=== PATIENT | female | born 1975 | race Caucasian/White ===

== ENCOUNTER 2024-05-24 15:58 | Emergency (ER) | payer BC, MEDICAID ==
[~2024-05-24] VITALS: Ht 162.6 cm; Wt 104.5 kg
[2024-05-24 16:07] VITALS: BP 139/87; PULSE 90; RESP 19; TEMP 98.4; O2SAT 99
[2024-05-24 16:26] LABS: GLUCOMETER DEV NAME(LOC) ERT.6; GLUCOSE,POINT OF CARE 110 MG/DL (70-110)
[2024-05-24 16:30] LABS: COVID AG,FIA SOURCE NASAL SWAB
[2024-05-24 16:44] LABS: HEMATOCRIT 42.8 % (36-46); HEMOGLOBIN 14.3 g/dL (12.0-16.0); MEAN CORPUSCULAR HEMOGLOBIN 30.6 pg (26.0-34.0); MEAN CORPUSCULAR HGB CONC 33.3 G/dL (31.0-37.0); MEAN CORPUSCULAR VOLUME 92 fL (80-100); PLATELET COUNT (AUTO) 218 K/uL (150-450); RED BLOOD CELL COUNT(AUTO) 4.66 MIL/uL (4.00-5.20); RED CELL DISTRIBUTION WIDTH 14.4 % (11.5-14.5); WHITE BLOOD COUNT (AUTO) 8.7 K/uL (4.5-11.0)
[2024-05-24 16:46] LABS: APPEARANCE,URINE HAZY (CLEAR); BILIRUBIN,URINE NEGATIVE (NEGATIVE); COLOR,URINE LIGHT YELLOW (YELLOW); GLUCOSE, URINE (UA) NEGATIVE (NEGATIVE); KETONES,URINE NEGATIVE (NEGATIVE); LEUKOCYTE ESTERASE ,URINE LARGE (NEGATIVE); NITRATE,URINE POSITIVE (NEGATIVE); OCCULT BLOOD,URINE MODERATE (NEGATIVE); PROTEIN,URINE NEGATIVE (NEGATIVE); SPECIFIC GRAVITIY, URINE 1.009 (1.003-1.030); UROBILINOGEN,URINE <=1.0 mg/dL (<=1.0)
[2024-05-24 16:48] LABS: ANION GAP 6 mmol/L (8-16); CALCIUM, TOTAL 9.1 mg/dL (8.8-10.5); CARBON DIOXIDE 27 mmol/L (22-29); CHLORIDE 101 mmol/L (98-107); CREATININE 0.78 mg/dL (0.60-1.30); GLOMERULAR FILTR. RATE CALC > 60 mL/min (>60); GLUCOSE,RANDOM 90 mg/dL (70-110); POTASSIUM 4.2 mmol/L (3.5-5.1); SODIUM SERUM 134 mmol/L (136-145); UREA NITROGEN, BLOOD 9 mg/dL (7-18)
[2024-05-24 16:59] LABS: INFLUENZA TYPE A NEGATIVE FOR TYPE A (NEGATIVE); INFLUENZA TYPE B NEGATIVE FOR TYPE B (NEGATIVE); SARS-COV2 (COVID) ANTIGEN,FIA Negative (Negative)
[2024-05-24 17:00] LABS: TROPONIN I-HIGH SENSITIVITY Less Than 4 ng/L (<51)
[2024-05-24 17:04] LABS: BACTERIA,URINE Many /HPF (None Seen); SQUAMOUS EPITHELIAL CELL,UR Moderate /LPF (None Seen)
[2024-05-24 17:16] LABS: BAND NEUTROPHILS % (MANUAL) 2 % (0-5); EOSINOPHILS % (MANUAL) 2 % (1-6); LYMPHOCYTES % (MANUAL) 18 % (22-44); MONOCYTES % (MANUAL) 9 % (2-9); SEGMENTED NEUTROPHILS % 69 % (40-70); TOTAL CELLS COUNTED 100
[2024-05-24] MEDS ORDERED: ACET-66 PO (17:34)
[2024-05-24] MEDS ORDERED: LORA1TAB25 PO (17:34)
[2024-05-24] MEDS ORDERED: IBUP-1554 PO (17:34)
[2024-05-24] MEDS ORDERED: CEPH-558 PO (17:34)
[2024-05-24] MEDS ORDERED: DIPH50CA37 PO (17:34)
[2024-05-24] MEDS: CEPHALEXIN MONOHYDRATE 500 MG CAPSULE PO ONE (17:36)
[2024-05-24] MEDS: IBUPROFEN 600 MG TABLET PO ONE (17:36)
== END 2024-05-24 18:12 | disposition home or self-care (01) ==
LOC: EMS 16:04
DX: N39.0 Urinary tract infection, site not specified (principal); R59.1 Generalized enlarged lymph nodes; R09.81 Nasal congestion; E11.9 Type 2 diabetes mellitus without complications; I10 Essential (primary) hypertension; E78.00 Pure hypercholesterolemia, unspecified; Z20.822 Contact with and (suspected) exposure to COVID-19
CPT/HCPCS: 80048; 81001; 82962; 84484; 85007; 85027; 87077; 87086; 87186; 87804; 99283